=== PATIENT | female | born 2000 | race Caucasian/White ===

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

== ENCOUNTER 2021-04-25 18:41 | Outpatient (REF) | payer OTHER, SELFPAY ==
[2021-04-27 16:30] LABS: Chlamydia Result Negative (Negative); GC Result Negative (Negative)
== END 2021-04-25 18:42 | disposition home or self-care (01) ==
LOC: LBN 18:41
PROVIDERS: PCP Nurse Practitioner Family; Visit Provider Nurse Practitioner Women's Health
DX: Z11.3 Encounter for screening for infections with a predominantly sexual mode of transmission (principal)
CPT/HCPCS: 87491; 87591

== ENCOUNTER 2022-03-24 02:24 | Outpatient (CLI) | payer OTHER, SELFPAY ==
[2022-03-27 09:30] LABS: HBs Antibody, Quant 220.5 mIU/mL (See Note); Hepatitis B Surface Ab Positive (See Note)
[2022-03-27 13:57] LABS: TB Interpretation Negative (Negative); TB1 Ag minus Nil 0.01 IU/ml; TB2 Ag minus Nil 0.02 IU/mL
== END 2022-03-24 02:25 | disposition home or self-care (01) ==
LOC: LOS 02:25
PROVIDERS: PCP Nurse Practitioner Family; Visit Provider Pediatrics
DX: Z92.29 Personal history of other drug therapy (principal); Z11.59 Encounter for screening for other viral diseases; Z11.1 Encounter for screening for respiratory tuberculosis
CPT/HCPCS: 36415; 86706; 86480

== ENCOUNTER 2022-06-13 20:24 | Outpatient (REF) | payer OTHER, SELFPAY ==
[2022-06-15 15:11] LABS: Chlamydia Result Negative (Negative); GC Result Negative (Negative)
== END 2022-06-13 20:25 | disposition home or self-care (01) ==
LOC: LBN 20:24
PROVIDERS: PCP Nurse Practitioner Family; Visit Provider Nurse Practitioner Women's Health
DX: Z11.3 Encounter for screening for infections with a predominantly sexual mode of transmission (principal)
CPT/HCPCS: 87491; 87591

== ENCOUNTER 2022-09-26 10:32 | Outpatient (REF) | payer OTHER, SELFPAY ==
--- NOTE | 2022-09-26 09:20 | PAPFT_PTH ---
PATIENT: Shania Sherwood LOC: [facility] U#:[id number] AGE/SX: 21/F ROOM: RE09/26/[address]: Tere Lazaro NP : 2000 BED: DIS: 09/26/2022 SPEC #: [id number] RECD: 09/26/22 13:03 STATUS: EVELIN REMagaly #: [id number] HINA: 09/26/22 09:[address]: Tere Lazaro NP DEPT: [facility] Cytology RECD BY: Nathalie Bravo ENTERED: 09/26/22 13:03 SP TYPE: PAPFT OTHR DR: Codie Gongora Tissues: 1 - CX/ENDOCX FOR PAP SMEARS Procedures: PAP THIN PREP/[facility] Screening HPV DNA PROBE Comments: [id number]
== END 2022-09-26 10:33 | disposition home or self-care (01) ==
LOC: LBN 10:32
PROVIDERS: PCP Nurse Practitioner Family; Visit Provider Nurse Practitioner Women's Health
DX: Z12.4 Encounter for screening for malignant neoplasm of cervix (principal); Z11.51 Encounter for screening for human papillomavirus (HPV)
CPT/HCPCS: 88142; 87624

== ENCOUNTER 2023-06-08 14:28 | Outpatient (REF) | payer BC, SELFPAY ==
[2023-06-10 13:56] LABS: Chlamydia Result Negative (Negative); GC Result Negative (Negative)
== END 2023-06-08 14:29 | disposition home or self-care (01) ==
LOC: LBN 14:28
PROVIDERS: PCP Family Medicine; Visit Provider Family Medicine
DX: Z20.2 Contact with and (suspected) exposure to infections with a predominantly sexual mode of transmission (principal)
CPT/HCPCS: 87491; 87591

== ENCOUNTER 2023-06-19 03:16 | Outpatient (CLI) | payer BC, SELFPAY ==
[2023-06-19 12:16] LABS: Abs Immature Grans 0.01 10^3/uL (0.0-0.06); Absolute Basophil Count 0.02 10^3/uL (0.0-0.2); Absolute Eosinophil Count 0.05 10^3/uL (0.0-0.7); Absolute Lymphocyte Count 1.51 10^3/uL (1.2-3.4); Absolute Monocyte Count 0.39 10^3/uL (0.1-0.8); Absolute Neutrophil Count 2.27 10^3/uL (1.2-6.7); Basophils % 0.5; Eosinophils % 1.2; HCT 37.9 % (36.0-46.0); HGB 12.6 g/dL (11.2-15.7); Immature Grans % 0.2; Lymphocytes % 35.5; MCH 31.9 pg (27.0-33.0); MCHC 33.2 % (32.0-36.0); MCV 96 fL (80-95); MPV 10.2 fL (8.0-11.0); Monocytes % 9.2; Neutrophils % 53.4; Platelet Count 226 10^3/uL (130-400); RBC 3.95 10^6/uL (3.93-5.22); WBC 4.25 10^3/uL (4.4-10.8)
[2023-06-19 12:33] LABS: ALT 27 U/L (14-59); AST 24 U/L (15-37); Albumin 4.2 g/dL (3.4-5.0); Alkaline Phosphatase 56 U/L (46-116); Anion Gap 7.2 mmol/L (3-11); BUN 16 mg/dL (7-18); Bilirubin, Total 0.7 mg/dL (0.2-1.0); CO2 30.8 mmol/L (21.0-32.0); CREATININE 0.9 mg/dL (0.55-1.02); Calcium 9.4 mg/dL (8.5-10.1); Chloride 104 mmol/L (98-107); Cholesterol 150 mg/dL (<200); Estimated GFR 93.28 (mL/min/1.73m2); Glucose 91 mg/dL (74-106); HDL Cholesterol 71 mg/dL (40-60); Sodium 142 mmol/L (136-145); TSH (W/Ref FT4) 1.09 uIU/mL (0.36-3.74); Total Protein 7.9 g/dL (6.4-8.2)
[2023-06-19 12:35] LABS: Triglyceride <25 mg/dL (<150)
[2023-06-19 12:51] LABS: LDL CHOLESTEROL 72 mg/dL (<100)
[2023-06-20 10:41] LABS: Hepatitis C Ab w Rflx HCV PCR Negative (Negative)
[2023-06-20 10:56] LABS: HIV-1/2 Ag & Ab Screen Negative (Negative)
== END 2023-06-19 03:17 | disposition home or self-care (01) ==
LOC: LOS 03:16
PROVIDERS: PCP Family Medicine; Visit Provider Family Medicine
DX: E03.9 Hypothyroidism, unspecified (principal); F32.0 Major depressive disorder, single episode, mild; Z13.6 Encounter for screening for cardiovascular disorders; Z11.4 Encounter for screening for human immunodeficiency virus [HIV]; Z00.00 Encounter for general adult medical examination without abnormal findings
CPT/HCPCS: 36415; 80053; 80061; 83721; 86803; 87389; 84443; 85025

== ENCOUNTER 2024-05-21 10:26 | Outpatient (REF) | payer BC, SELFPAY ==
[2024-05-22 13:02] LABS: Chlamydia Result Negative (Negative); GC Result Negative (Negative)
== END 2024-05-21 10:27 | disposition home or self-care (01) ==
LOC: LBN 10:26
PROVIDERS: PCP Family Medicine; Visit Provider Nurse Practitioner Women's Health
DX: Z11.3 Encounter for screening for infections with a predominantly sexual mode of transmission (principal)
CPT/HCPCS: 87491; 87591

== ENCOUNTER 2024-09-29 02:31 | Outpatient (CLI) | payer BC, SELFPAY ==
[2024-09-29 14:50] LABS: Abs Immature Grans 0.01 10^3/uL (0.0-0.06); Absolute Basophil Count 0.02 10^3/uL (0.0-0.2); Absolute Eosinophil Count 0.14 10^3/uL (0.0-0.7); Absolute Lymphocyte Count 1.56 10^3/uL (1.2-3.4); Absolute Monocyte Count 0.38 10^3/uL (0.1-0.8); Absolute Neutrophil Count 1.99 10^3/uL (1.2-6.7); Basophils % 0.5 %; Eosinophils % 3.4 %; HCT 36.8 % (36.0-46.0); HGB 12.4 g/dL (11.2-15.7); Immature Grans % 0.2 %; MCHC 33.7 % (32.0-36.0); MCV 95 fL (80-95); MPV 9.3 fL (8.0-11.0); Monocytes % 9.3 %; Neutrophils % 48.6 %; Platelet Count 233 10^3/uL (130-400); RBC 3.87 10^6/uL (3.93-5.22); RDW 12.4 % (11.7-14.6); RDW-SD 43.3 fL
[2024-09-29 16:49] LABS: ALT 43 U/L (14-59); AST 36 U/L (15-37); Albumin 3.7 g/dL (3.4-5.0); Alkaline Phosphatase 48 U/L (46-116); Anion Gap 6.1 mmol/L (3-11); BUN 13 mg/dL (7-18); Bilirubin, Total 0.36 mg/dL (0.2-1.0); CO2 27.9 mmol/L (21.0-32.0); Calcium 9.2 mg/dL (8.5-10.1); Chloride 104 mmol/L (98-107); Estimated GFR 81.69 (mL/min/1.73m2); Glucose 77 mg/dL (74-106); Potassium 3.7 mmol/L (3.5-5.1); Sodium 138 mmol/L (136-145); TSH (W/Ref FT4) 0.98 uIU/mL (0.36-3.74); Total Protein 7.6 g/dL (6.4-8.2)
== END 2024-09-29 02:32 | disposition home or self-care (01) ==
LOC: LBO 02:31
PROVIDERS: PCP Family Medicine; Visit Provider Family Medicine
DX: E03.9 Hypothyroidism, unspecified (principal); R63.5 Abnormal weight gain; Z00.00 Encounter for general adult medical examination without abnormal findings
CPT/HCPCS: 36415; 80053; 84443; 85025

== ENCOUNTER 2024-10-09 12:24 | Outpatient (REF) | payer BC, SELFPAY ==
[2024-10-10 11:28] LABS: Chlamydia Result Negative (Negative); GC Result Negative (Negative)
== END 2024-10-09 12:25 | disposition home or self-care (01) ==
LOC: LBN 12:24
PROVIDERS: PCP Family Medicine; Visit Provider Obstetrics & Gynecology
DX: Z30.9 Encounter for contraceptive management, unspecified (principal); Z30.430 Encounter for insertion of intrauterine contraceptive device
CPT/HCPCS: 87491; 87591

== ENCOUNTER 2024-10-30 14:12 | Outpatient (REF) | payer BC, SELFPAY | END 2024-10-30 14:13 | disposition home or self-care (01) | LOC: LBN 14:12 | PROVIDERS: PCP Family Medicine; Visit Provider Obstetrics & Gynecology | DX: N94.9 Unspecified condition associated with female genital organs and menstrual cycle (principal) | CPT/HCPCS: 87480; 87510; 87660 ==

== ENCOUNTER 2025-03-18 03:21 | Outpatient (CLI) | payer BC, SELFPAY ==
[2025-03-18 13:52] LABS: Abs Immature Grans 0.01 10^3/uL (0.0-0.06); Absolute Basophil Count 0.02 10^3/uL (0.0-0.2); Absolute Eosinophil Count 0.08 10^3/uL (0.0-0.7); Absolute Lymphocyte Count 1.74 10^3/uL (1.2-3.4); Absolute Monocyte Count 0.44 10^3/uL (0.1-0.8); Absolute Neutrophil Count 3.93 10^3/uL (1.2-6.7); Basophils % 0.3 %; Eosinophils % 1.3 %; HGB 12.1 g/dL (11.2-15.7); Immature Grans % 0.2 %; MCH 32.5 pg (27.0-33.0); MCHC 34.6 % (32.0-36.0); MCV 94 fL (80-95); MPV 9.4 fL (8.0-11.0); Monocytes % 7.1 %; Neutrophils % 63.1 %; Platelet Count 225 10^3/uL (130-400); RBC 3.72 10^6/uL (3.93-5.22); RDW 12.2 % (11.7-14.6); RDW-SD 42.3 fL; WBC 6.22 10^3/uL (4.4-10.8)
== END 2025-03-18 03:22 | disposition home or self-care (01) ==
LOC: LBO 03:22
PROVIDERS: PCP Family Medicine; Visit Provider Family Medicine
DX: D72.819 Decreased white blood cell count, unspecified (principal)
CPT/HCPCS: 36415; 85025

== ENCOUNTER 2025-05-25 11:36 | Outpatient (REF) | payer BC, SELFPAY ==
--- NOTE | 2025-05-25 11:15 | PAPFT_PTH ---
PATIENT: Shania Sherwood LOC: N U#:[id number] AGE/SX: 24/F ROOM: RE05/25/[address]: Tere Lazaro NP : 2000 BED: DIS: 05/25/2025 SPEC #: [id number] RECD: 05/25/25 13:38 STATUS: EVELIN REQ #: [id number] HINA: 05/25/25 11:[address]: Tejas DANIEL,Tere DEPT: [facility] Cytology RECD BY: Nathalie Bravo ENTERED: 05/25/25 13:39 SP TYPE: PAPFT OTHR DR: Radha Sanchez Tissues: 1 - CX/ENDOCX FOR PAP SMEARS Procedures: PAP THIN PREP/[facility] Screening Comments: [id number]
== END 2025-05-25 11:37 | disposition home or self-care (01) ==
LOC: LBN 11:36
PROVIDERS: PCP Family Medicine; Visit Provider Nurse Practitioner Women's Health
DX: Z12.4 Encounter for screening for malignant neoplasm of cervix (principal)
CPT/HCPCS: 88142

== ENCOUNTER 2025-06-19 00:45 | Outpatient (CLI) | payer BC, SELFPAY ==
[2025-06-23 14:06] LABS: TB Interpretation Negative (Negative); TB1 Ag minus Nil 0.00 IU/mL; TB2 Ag minus Nil 0.00 IU/mL
== END 2025-06-19 00:46 | disposition home or self-care (01) ==
LOC: LOS 00:45
PROVIDERS: PCP Family Medicine; Visit Provider Family Medicine
DX: Z11.1 Encounter for screening for respiratory tuberculosis (principal)
CPT/HCPCS: 36415; 86480